=== PATIENT | female | born 1960 | race Caucasian/White ===

== ENCOUNTER 2018-06-02 22:18 | Emergency (ER) | payer SELFPAY ==
[2018-06-02] MEDS ORDERED: Ondansetron 4 MG Tab.DIS PO ONE (22:48)
--- NOTE | 2018-06-02 22:56 | EDM.PDOC ---
ED HPI GENERAL MEDICAL PROBLEM - General Chief Complaint: Gastrointestinal Problem Stated Complaint: POSS FOOD POISONING Time Seen by Provider: 06/02/18 22:28 Source of Information: Reports: Patient, Family (), RN Notes Reviewed History Limitations: Reports: No Limitations - History of Present Illness INITIAL COMMENTS - FREE TEXT/NARRATIVE: The patient states that she had shrimp Bashir for dinner around 18:30 tonight, then developed nausea with about 5 episodes of emesis, along with a few episodes of watery diarrhea, and abdominal cramps, around 21:00. No recent fever. No urinary symptoms. No prior similar symptoms. The patient did not take any [id number] or home remedies to try to treat her symptoms. No similarly ill contacts. The patient does not recall eating any bad or spoiled food. No recent antibiotics. No recent travel. The patient's PCP is in [facility]. - Related Data Allergies Allergy/AdvReac Type Severity Reaction Status Date / Time No Known Allergies Allergy Verified 06/02/18 22:29 Home Meds: Home Meds Lisinopril 10 mg PO DAILY 06/02/18 [History] Ondansetron [Zofran ODT] 1 tab PO Q8H PRN #4 tab.dis 06/02/18 [Rx] hydroCHLOROthiazide [Hydrochlorothiazide] 25 mg PO DAILY 06/02/18 [History] Past Medical History Cardiovascular History: Reports: Hypertension - Past Surgical History Neurological Surgical History: Reports: Lumbar Spine (laminectomy around 1997) Social & Family History - Tobacco Use Smoking Status *Q: Never Smoker - Caffeine Use Caffeine Use: Reports: Coffee, Soda, Tea - Alcohol Use Alcohol Use History: Yes Alcohol Use Frequency: Socially - Recreational Drug Use Recreational Drug Use: No - Living Situation & Occupation Living situation: Reports: , with Spouse, with Family (Grandson) Occupation: Employed (logging truck driver) ED ROS GENERAL - Review of Systems Review Of Systems: ROS reveals no pertinent complaints other than HPI. ED EXAM, GI/ABD - Physical Exam Exam: See Below Exam Limited By: No Limitations General Appearance: Alert, WD/WN, No Apparent Distress Eyes: Bilateral: Normal Appearance, EOMI Ears: Normal External Exam, Hearing Grossly Normal Nose: Normal Inspection Throat/Mouth: Normal Inspection, Normal Lips, Normal Voice, No Airway Compromise Head: Atraumatic, Normocephalic Neck: Normal Inspection, Full Range of Motion Respiratory/Chest: No Respiratory Distress, Lungs Clear, Normal Breath Sounds, No Accessory Muscle Use Cardiovascular: Normal Peripheral Pulses, Regular Rate, Rhythm, No Edema, No Gallop, No JVD, No Murmur, No Rub GI/Abdominal Exam: Normal Bowel Sounds, Soft, No Organomegaly, No Distention, No Abnormal Bruit, No Mass, Tender (Mild, generalized, non-focal) (Female) Exam: Deferred Rectal (Female) Exam: Deferred Back Exam: Normal Inspection, Full Range of Motion, NT Extremities: Normal Inspection, Normal Range of Motion, No Pedal Edema, Normal Capillary Refill Neurological: Alert, Oriented, Normal Cognition, No Motor/Sensory Deficits Psychiatric: Normal Affect Skin Exam: Warm, Dry, Intact, Normal Color, No Rash Course - Vital Signs Last Recorded V/S: Last Vital Signs Temp 36.7 C 06/02/18 22:33 Pulse 88 06/02/18 22:33 Resp 20 06/02/18 22:33 BP 147/99 H 06/02/18 22:33 Pulse Ox 91 L 06/02/18 22:33 - Orders/Labs/Meds Meds: Medications Discontinued Medications Generic Name Dose Route Start Last Admin Trade Name Freq PRN Reason Stop Dose Admin Ondansetron HCl 4 mg 06/02/18 22:48 06/02/18 22:53 Zofran Odt PO 06/02/18 22:49 4 mg ONETIME ONE Administration - Re-Assessments/Exams Free Text/Narrative Re-Assessment/Exam: 06/02/18 22:48 Based on the patient's history and physical examination, she is suffering from gastroenteritis, most likely viral in etiology. She states that she is now feeling all better, and is convinced that this episode of gastroenteritis is resolved. I managed to talk the patient into receiving a dose of Zofran here in the ED, to help prevent her nausea from returning tonight, and I will send her home with a prescription for Zofran that she can fill in the morning, should her symptoms persist, along with the recommendation that she take over-the- counter loperamide, if her diarrhea persists. She did not want any loperamide at this time. Departure - Departure Time of Disposition: 22:50 Disposition: Home, Self-Care 01 Condition: Good Clinical Impression: Viral gastroenteritis - Discharge Information *PRESCRIPTION DRUG MONITORING PROGRAM REVIEWED*: Not Applicable *COPY OF PRESCRIPTION DRUG MONITORING REPORT IN PATIENT TEOFILO: Not Applicable Prescriptions: Ondansetron [Zofran ODT] 1 tab PO Q8H PRN #4 tab.dis PRN Reason: Nausea/Vomiting Instructions: Viral Gastroenteritis, Adult, [id number] Referrals: PCP,None [Primary Care Provider] - Forms: ED Department Discharge Additional Instructions: You were seen in the emergency room after developing nausea, vomiting, watery diarrhea, and abdominal cramps around 9:00 this evening. Based on your history and physical examination, you are most likely suffering from viral gastroenteritis. You are NOT suffering from food poisoning from something you ate earlier tonight. You were given a single tablet of the anti-nausea medicine Zofran in the ER. A prescription for Zofran has been sent home with you. You may dissolve one tablet of Zofran on your tongue up to every 8 hours, as needed for nausea/ vomiting. Stay adequately hydrated. Gatorade or Powerade are best. We recommend that you eat a bland diet, such as oatmeal, rice, applesauce, and toast, for the next day or two, until you are feeling all better. If your diarrhea persists, we recommend that you take [id number] loperamide (Imodium), as directed on the label. If any other problems, please do not hesitate to return to the ER.
== END 2018-06-02 23:02 | disposition home or self-care (01) ==
LOC: JD.ED 22:18
DX: A08.4 Viral intestinal infection, unspecified (principal); I10 Essential (primary) hypertension; Z79.899 Other long term (current) drug therapy
CPT/HCPCS: 99283; A9270